=== PATIENT | female | born 1960 | race Caucasian/White ===

== ENCOUNTER → 2016-12-11 | Outpatient (REF) | payer MEDICARE, MEDICAID ==
[~2016-12-11] MED LIST: ADV250INH INH; ALBU17IN INH; ALBU83IN INH; CHEW500C2 PO; CRES20TA PO; CYCL1POW XX; DAPS10TA PO; GABA600T PO; HYDR-3713 PO; HYDROXYZINE HCL; INSUDET SC; LANTINJ4 SC; LASI20TA PO; LEVE1INJ5 SC; NORV100T PO; NOVOINJ3 SC; POTA75TA2 PO; PREZ800T2 PO; TIVI1TAB PO; TRUVTAB PO; VITA100067 PO; VITA500C24 PO
[2016-12-11 14:13] LABS: ALBUMIN 3.8 GM/DL (3.2-5.2); ALBUMIN/GLOBULIN RATIO 1.09 (1.00-1.93); ALKALINE PHOSPHATASE 86 U/L (45-117); ALT/SGPT 41 U/L (12-78); ANION GAP 10 MEQ/L (8-16); AST/SGOT 40 U/L (15-37); BILIRUBIN,TOTAL 0.8 MG/DL (0.2-1.0); BLOOD UREA NITROGEN 10 MG/DL (7-18); CALCIUM LEVEL 9.4 MG/DL (8.5-10.1); CARBON DIOXIDE LEVEL 31 MEQ/L (21-32); CHLORIDE LEVEL 100 MEQ/L (98-107); CHOLESTEROL LEVEL 143 MG/DL (<200); CREATININE FOR GFR 0.96 MG/DL (0.55-1.02); GLOMERULAR FILTRATION RATE > 60.0 (>51); GLUCOSE, FASTING 68 MG/DL (70-105); POTASSIUM SERUM 3.1 MEQ/L (3.5-5.1); SODIUM LEVEL 141 MEQ/L (136-145); TOTAL PROTEIN 7.3 GM/DL (6.4-8.2); TRIGLYCERIDES LEVEL 116 MG/DL (<150)
[2016-12-13 00:08] LABS: %CD3+CD4+CD8+ 1.2 % (Not Estab.); %CD3+CD4+CD8- 6.4 % (Not Estab.); %CD3+CD4-CD8+ 68.4 % (Not Estab.); %CD3+CD4-CD8- 0.4 % (Not Estab.); ABS CD3+CD4+CD8+ 14 /uL (Not Estab.); ABS CD3+CD4+CD8- 77 /uL (Not Estab.); ABS CD3+CD4-CD8+ 821 /uL (Not Estab.); ABS CD3+CD4-CD8- 5 /uL (Not Estab.); CD4/CD8 NYSDOH RATIO 0.09 (Not Estab.); Eosinophils 2 % (.); HCT 44.4 % (34.0-46.6); HGB 14.8 g/dL (11.1-15.9); Monocytes 12 % (.); Neutrophils 67 % (.); WBC 6.4 x10E3/uL (3.4-10.8)
[2016-12-22 08:21] LABS: Genotype Assay SEE SEPARATE REPORT; log10 HIV-1 RNA 3.489
== END ==
LOC: M LABDRAW1 11:33
PROVIDERS: ATTEND Internal Medicine Infectious Disease
DX: B20 Human immunodeficiency virus [HIV] disease (principal); E11.9 Type 2 diabetes mellitus without complications
CPT/HCPCS: 36415; 80053; 80061; 83036; 86360; G0463

== ENCOUNTER → 2017-01-29 | Outpatient (REF) | payer MEDICARE, MEDICAID ==
[2017-01-29 16:11] LABS: ALBUMIN 3.6 GM/DL (3.2-5.2); ALBUMIN/GLOBULIN RATIO 0.95 (1.00-1.93); ALKALINE PHOSPHATASE 122 U/L (45-117); ALT/SGPT 39 U/L (12-78); ANION GAP 6 MEQ/L (8-16); AST/SGOT 18 U/L (15-37); BILIRUBIN,TOTAL 0.2 MG/DL (0.2-1.0); BLOOD UREA NITROGEN 10 MG/DL (7-18); CALCIUM LEVEL 9.2 MG/DL (8.5-10.1); CARBON DIOXIDE LEVEL 31 MEQ/L (21-32); CHLORIDE LEVEL 104 MEQ/L (98-107); CREATININE FOR GFR 0.97 MG/DL (0.55-1.02); GLOMERULAR FILTRATION RATE > 60.0 (>51); GLUCOSE, FASTING 200 MG/DL (70-105); POTASSIUM SERUM 4.2 MEQ/L (3.5-5.1); SODIUM LEVEL 141 MEQ/L (136-145); TOTAL PROTEIN 7.4 GM/DL (6.4-8.2)
[2017-02-04 00:06] LABS: %CD3+CD4+CD8- 6.8 % (Not Estab.); %CD3+CD4-CD8+ 76.4 % (Not Estab.); %CD3+CD4-CD8- 0.8 % (Not Estab.); ABS CD3+CD4+CD8+ 12 /uL (Not Estab.); ABS CD3+CD4+CD8- 82 /uL (Not Estab.); ABS CD3+CD4-CD8+ 917 /uL (Not Estab.); ABS CD3+CD4-CD8- 10 /uL (Not Estab.); CD4/CD8 NYSDOH RATIO 0.09 (Not Estab.); Eosinophils 6 % (.); HCT 44.6 % (34.0-46.6); HGB 14.9 g/dL (11.1-15.9); Monocytes 11 % (.); Neutrophils 48 % (.); WBC 3.8 x10E3/uL (3.4-10.8)
== END ==
LOC: M SFHCPLAZ 13:24
PROVIDERS: ATTEND Internal Medicine Infectious Disease
DX: B20 Human immunodeficiency virus [HIV] disease (principal)
CPT/HCPCS: 36415; 80053; 86360; 87536; G0463

== ENCOUNTER → 2017-02-26 | Outpatient (REF) | payer MEDICARE, MEDICAID ==
[2017-02-26 16:51] LABS: ALBUMIN 3.7 GM/DL (3.2-5.2); ALBUMIN/GLOBULIN RATIO 0.93 (1.00-1.93); ALKALINE PHOSPHATASE 103 U/L (45-117); ALT/SGPT 21 U/L (12-78); ANION GAP 7 MEQ/L (8-16); AST/SGOT 15 U/L (15-37); BILIRUBIN,TOTAL 0.4 MG/DL (0.2-1.0); BLOOD UREA NITROGEN 11 MG/DL (7-18); CALCIUM LEVEL 9.9 MG/DL (8.5-10.1); CARBON DIOXIDE LEVEL 32 MEQ/L (21-32); CHLORIDE LEVEL 104 MEQ/L (98-107); CREATININE FOR GFR 0.91 MG/DL (0.55-1.02); GLOMERULAR FILTRATION RATE > 60.0 (>51); GLUCOSE, FASTING 108 MG/DL (70-105); POTASSIUM SERUM 4.1 MEQ/L (3.5-5.1); SODIUM LEVEL 143 MEQ/L (136-145); TOTAL PROTEIN 7.7 GM/DL (6.4-8.2)
[2017-03-03 14:12] LABS: Eosinophils 3 % (.); HCT 44.2 % (34.0-46.6); HGB 14.8 g/dL (11.1-15.9); Monocytes 12 % (.); Neutrophils 58 % (.); WBC 5.4 x10E3/uL (3.4-10.8)
== END ==
LOC: M SFHCPLAZ 14:34
PROVIDERS: ATTEND Internal Medicine Infectious Disease
DX: B20 Human immunodeficiency virus [HIV] disease (principal)
CPT/HCPCS: 80053; 86360; 87536; G0463

== ENCOUNTER → 2017-05-25 | Outpatient (REF) | payer MEDICARE, MEDICAID ==
[2017-05-25 16:42] LABS: ALBUMIN 3.6 GM/DL (3.2-5.2); ALKALINE PHOSPHATASE 109 U/L (45-117); ALT/SGPT 19 U/L (12-78); ANION GAP 5 MEQ/L (8-16); AST/SGOT 13 U/L (7-37); BILIRUBIN,TOTAL 0.3 MG/DL (0.2-1.0); BLOOD UREA NITROGEN 14 MG/DL (7-18); CALCIUM LEVEL 9.4 MG/DL (8.5-10.1); CARBON DIOXIDE LEVEL 33 MEQ/L (21-32); CHLORIDE LEVEL 101 MEQ/L (98-107); CHOLESTEROL LEVEL 280 MG/DL (<200); GLOMERULAR FILTRATION RATE > 60.0 (>51); GLUCOSE, FASTING 142 MG/DL (70-105); POTASSIUM SERUM 4.8 MEQ/L (3.5-5.1); SODIUM LEVEL 139 MEQ/L (136-145); TOTAL PROTEIN 7.6 GM/DL (6.4-8.2); TRIGLYCERIDES LEVEL 335 MG/DL (<150)
== END ==
LOC: M SFHCPLAZ 14:34
PROVIDERS: ATTEND Internal Medicine Infectious Disease
DX: B20 Human immunodeficiency virus [HIV] disease (principal); E78.00 Pure hypercholesterolemia, unspecified; E11.9 Type 2 diabetes mellitus without complications

== ENCOUNTER → 2017-08-24 | Outpatient (REF) | payer MEDICARE, MEDICAID ==
[2017-08-24 16:10] LABS: ALBUMIN 3.6 GM/DL (3.2-5.2); ALBUMIN/GLOBULIN RATIO 0.86 (1.00-1.93); ALKALINE PHOSPHATASE 153 U/L (45-117); ALT/SGPT 16 U/L (12-78); ANION GAP 9 MEQ/L (8-16); AST/SGOT 12 U/L (7-37); BILIRUBIN,TOTAL 0.3 MG/DL (0.2-1.0); BLOOD UREA NITROGEN 13 MG/DL (7-18); CALCIUM LEVEL 8.7 MG/DL (8.5-10.1); CARBON DIOXIDE LEVEL 30 MEQ/L (21-32); CHLORIDE LEVEL 99 MEQ/L (98-107); CHOLESTEROL LEVEL 224 MG/DL (<200); CHOLESTEROL RISK RATIO 4.392 (<5); CREATININE FOR GFR 1.11 MG/DL (0.55-1.30); GLOMERULAR FILTRATION RATE 53.9 (>51); GLUCOSE, FASTING 297 MG/DL (70-100); HDL CHOLESTEROL 51 MG/DL (>40); LDL CHOLESTEROL 129.4 MG/DL (<100); NON-HDL-C 173 MG/DL; POTASSIUM SERUM 4.3 MEQ/L (3.5-5.1); SODIUM LEVEL 138 MEQ/L (136-145); TOTAL PROTEIN 7.8 GM/DL (6.4-8.2); TRIGLYCERIDES LEVEL 218 MG/DL (<150)
[2017-08-24 16:29] LABS: ESTIMATED AVERAGE GLUCOSE 194 MG/DL (60-110); HEMOGLOBIN A1c 8.4 %
[2017-08-26 14:15] LABS: % CD8 Pos Lymph 64.1 % (12.0-35.5); %CD4 Pos Lymphs 10.2 % (30.8-58.5); ABS Eosinophils 0.2 x10E3/uL (0.0-0.4); ABS Lymphs 1.4 x10E3/uL (0.7-3.1); ABS Monocytes 0.5 x10E3/uL (0.1-0.9); ABS Neutophils 2.9 x10E3/uL (1.4-7.0); Abs CD4 Helper 143 /uL (359-1519); Abs CD8 Suppres 897 /uL (109-897); CD4/CD8 Ratio 0.16 (0.92-3.72); Eosinophils 4 % (Not Estab.); HCT 45.3 % (34.0-46.6); HGB 14.9 g/dL (11.1-15.9); Imm ABS Grans 0.1 x10E3/uL (0.0-0.1); Immature Grans 1 % (Not Estab.); Lymphocytes 28 % (Not Estab.); MCH 33.9 pg (26.6-33.0); MCHC 32.9 g/dL (31.5-35.7); MCV 103 fL (79-97); Monocytes 10 % (Not Estab.); Neutrophils 57 % (Not Estab.); Platelets 225 x10E3/uL (150-379); QUANTIFERON GOLD TB Negative (Negative); RDW 12.9 % (12.3-15.4); TB Test (QFT) Antigen 0.04 IU/mL (.); TB Test (QFT) Antigen Minus Ni <0.01 IU/mL (.); TB Test (QFT) Mitogen 7.02 IU/mL (.); TB Test (QFT) Nil 0.05 IU/mL (.)
[2017-08-27 14:13] LABS: HIV-1 RNA PCR QUANT 2 LC550285 90 copies/mL (.); HIV-1 RNA PCR QUANT 3 LC550285 1.954 (.)
== END ==
LOC: M SFHCPLAZ 13:06
DX: B20 Human immunodeficiency virus [HIV] disease (principal); E11.9 Type 2 diabetes mellitus without complications; E78.00 Pure hypercholesterolemia, unspecified; Z11.3 Encounter for screening for infections with a predominantly sexual mode of transmission; F51.01 Primary insomnia; B58.2 Toxoplasma meningoencephalitis; F32.9 Major depressive disorder, single episode, unspecified; Z79.4 Long term (current) use of insulin
CPT/HCPCS: 80053

== ENCOUNTER → 2017-10-02 | Outpatient (CLI) | payer MEDICARE, MEDICAID | LOC: M WHC 14:19 | DX: Z12.31 Encounter for screening mammogram for malignant neoplasm of breast (principal); Z13.820 Encounter for screening for osteoporosis; Z78.0 Asymptomatic menopausal state | CPT/HCPCS: 77067 ==

== ENCOUNTER → 2017-10-02 | Outpatient (REF) | payer MEDICARE, MEDICAID ==
[2017-10-02 19:20] LABS: CHLAMYDIA DNA AMPLIFICATION NEGATIVE (NEGATIVE); GC DNA AMPLIFICATION NEGATIVE (NEGATIVE)
== END ==
LOC: M SFHCWAGY 17:30
DX: Z11.3 Encounter for screening for infections with a predominantly sexual mode of transmission (principal); Z12.4 Encounter for screening for malignant neoplasm of cervix; R87.610 Atypical squamous cells of undetermined significance on cytologic smear of cervix (ASC-US)
CPT/HCPCS: 87591

== ENCOUNTER → 2017-10-02 | Outpatient (REF) | payer MEDICARE, MEDICAID | LOC: M SFHCWAGY 14:36 | DX: Z12.4 Encounter for screening for malignant neoplasm of cervix (principal); Z11.3 Encounter for screening for infections with a predominantly sexual mode of transmission; R87.610 Atypical squamous cells of undetermined significance on cytologic smear of cervix (ASC-US) | CPT/HCPCS: G0123 ==

== ENCOUNTER → 2018-01-26 | Outpatient (REF) | payer MEDICARE, MEDICAID ==
[2018-01-26 17:25] LABS: ESTIMATED AVERAGE GLUCOSE 212 MG/DL (60-110)
[2018-01-26 18:41] LABS: ALBUMIN 3.3 GM/DL (3.2-5.2); ALBUMIN/GLOBULIN RATIO 0.83 (1.00-1.93); ALKALINE PHOSPHATASE 112 U/L (45-117); ALT/SGPT 19 U/L (12-78); ANION GAP 6 MEQ/L (8-16); AST/SGOT 11 U/L (7-37); BILIRUBIN,TOTAL 0.3 MG/DL (0.2-1.0); BLOOD UREA NITROGEN 17 MG/DL (7-18); CALCIUM LEVEL 8.7 MG/DL (8.5-10.1); CARBON DIOXIDE LEVEL 31 MEQ/L (21-32); CHLORIDE LEVEL 104 MEQ/L (98-107); CHOLESTEROL LEVEL 283 MG/DL (<200); CHOLESTEROL RISK RATIO 4.639 (<5); CREATININE FOR GFR 1.14 MG/DL (0.55-1.30); GLOMERULAR FILTRATION RATE 52.3 (>51); GLUCOSE, FASTING 123 MG/DL (70-100); HDL CHOLESTEROL 61 MG/DL (>40); NON-HDL-C 222 MG/DL; POTASSIUM SERUM 4.1 MEQ/L (3.5-5.1); SODIUM LEVEL 141 MEQ/L (136-145); TOTAL PROTEIN 7.3 GM/DL (6.4-8.2); TRIGLYCERIDES LEVEL 200 MG/DL (<150)
[2018-01-30 00:06] LABS: % CD8 Pos Lymph 64.2 % (12.0-35.5); %CD4 Pos Lymphs 11.2 % (30.8-58.5); ABS Eosinophils 0.2 x10E3/uL (0.0-0.4); ABS Lymphs 1.5 x10E3/uL (0.7-3.1); ABS Monocytes 0.5 x10E3/uL (0.1-0.9); ABS Neutophils 4.2 x10E3/uL (1.4-7.0); Abs CD4 Helper 168 /uL (359-1519); Abs CD8 Suppres 963 /uL (109-897); CD4/CD8 Ratio 0.17 (0.92-3.72); Eosinophils 3 % (Not Estab.); HCT 43.4 % (34.0-46.6); HGB 14.4 g/dL (11.1-15.9); HIV-1 RNA PCR QUANT 2 LC550285 80 copies/mL (.); HIV-1 RNA PCR QUANT 3 LC550285 1.903 (.); Immature Grans 1 % (Not Estab.); Lymphocytes 23 % (Not Estab.); MCH 33.6 pg (26.6-33.0); MCHC 33.2 g/dL (31.5-35.7); MCV 101 fL (79-97); Monocytes 8 % (Not Estab.); Neutrophils 65 % (Not Estab.); Platelets 236 x10E3/uL (150-379); RBC 4.28 x10E6/uL (3.77-5.28); RDW 13.4 % (12.3-15.4); WBC 6.5 x10E3/uL (3.4-10.8)
== END ==
LOC: M SFHCPLAZ 12:09
DX: B20 Human immunodeficiency virus [HIV] disease (principal); E11.9 Type 2 diabetes mellitus without complications; E78.00 Pure hypercholesterolemia, unspecified
CPT/HCPCS: 84443

== ENCOUNTER → 2018-05-04 | Outpatient (REF) | payer MEDICARE, MEDICAID ==
[2018-05-04 14:04] LABS: ESTIMATED AVERAGE GLUCOSE 209 MG/DL (60-110); HEMOGLOBIN A1c 8.9 %
[2018-05-04 14:09] LABS: ALBUMIN 3.5 GM/DL (3.2-5.2); ALBUMIN/GLOBULIN RATIO 0.81 (1.00-1.93); ALKALINE PHOSPHATASE 127 U/L (45-117); ALT/SGPT 25 U/L (12-78); ANION GAP 4 MEQ/L (8-16); AST/SGOT 12 U/L (7-37); BILIRUBIN,TOTAL 0.5 MG/DL (0.2-1.0); BLOOD UREA NITROGEN 11 MG/DL (7-18); CALCIUM LEVEL 9.1 MG/DL (8.5-10.1); CARBON DIOXIDE LEVEL 34 MEQ/L (21-32); CHLORIDE LEVEL 101 MEQ/L (98-107); CHOLESTEROL LEVEL 399 MG/DL (<200); CHOLESTEROL RISK RATIO 6.762 (<5); CREATININE FOR GFR 1.02 MG/DL (0.55-1.30); GLOMERULAR FILTRATION RATE 59.3 (>51); GLUCOSE, FASTING 216 MG/DL (70-100); HDL CHOLESTEROL 59 MG/DL (>40); LDL CHOLESTEROL 293 MG/DL (<100); NON-HDL-C 340 MG/DL; POTASSIUM SERUM 4.3 MEQ/L (3.5-5.1); SODIUM LEVEL 139 MEQ/L (136-145); TOTAL PROTEIN 7.8 GM/DL (6.4-8.2); TRIGLYCERIDES LEVEL 234 MG/DL (<150)
[2018-05-07 00:06] LABS: % CD8 Pos Lymph 61.1 % (12.0-35.5); %CD4 Pos Lymphs 9.5 % (30.8-58.5); ABS Eosinophils 0.2 x10E3/uL (0.0-0.4); ABS Lymphs 1.5 x10E3/uL (0.7-3.1); ABS Monocytes 0.7 x10E3/uL (0.1-0.9); ABS Neutophils 4.6 x10E3/uL (1.4-7.0); Abs CD4 Helper 143 /uL (359-1519); Abs CD8 Suppres 917 /uL (109-897); CD4/CD8 Ratio 0.16 (0.92-3.72); Eosinophils 3 % (Not Estab.); HCT 43.3 % (34.0-46.6); HGB 15.2 g/dL (11.1-15.9); HIV-1 RNA PCR QUANT 2 LC550285 90 copies/mL (.); HIV-1 RNA PCR QUANT 3 LC550285 1.954 (.); Imm ABS Grans 0.1 x10E3/uL (0.0-0.1); Immature Grans 1 % (Not Estab.); Lymphocytes 21 % (Not Estab.); MCH 34.5 pg (26.6-33.0); MCHC 35.1 g/dL (31.5-35.7); MCV 98 fL (79-97); Monocytes 9 % (Not Estab.); Neutrophils 66 % (Not Estab.); Platelets 261 x10E3/uL (150-379); RDW 13.6 % (12.3-15.4)
== END ==
LOC: M SFHCPLAZ 11:27
DX: B20 Human immunodeficiency virus [HIV] disease (principal); E11.9 Type 2 diabetes mellitus without complications; E78.00 Pure hypercholesterolemia, unspecified; Z23 Encounter for immunization
CPT/HCPCS: 80053

== ENCOUNTER → 2018-08-05 | Outpatient (REF) | payer MEDICARE, MEDICAID ==
[~2018-08-05] MED LIST changes: -GABA600T PO; +GABA600T4 PO; -LASI20TA PO; +LASI20TA3 PO
[2018-08-05 13:56] LABS: HEMOGLOBIN A1c 10.2 %
[2018-08-05 14:01] LABS: ALBUMIN 3.8 GM/DL (3.2-5.2); ALT/SGPT 23 U/L (12-78); BILIRUBIN,TOTAL 0.4 MG/DL (0.2-1.0); BLOOD UREA NITROGEN 23 MG/DL (7-18); CALCIUM LEVEL 9.2 MG/DL (8.5-10.1); CARBON DIOXIDE LEVEL 31 MEQ/L (21-32); CHLORIDE LEVEL 98 MEQ/L (98-107); CHOLESTEROL LEVEL 382 MG/DL (<200); CHOLESTEROL RISK RATIO 5.968 (<5); GLOMERULAR FILTRATION RATE > 60.0 (>51); GLUCOSE, FASTING 254 MG/DL (70-100); HDL CHOLESTEROL 64 MG/DL (>40); LDL CHOLESTEROL 266 MG/DL (<100); NON-HDL-C 318 MG/DL; POTASSIUM SERUM 4.3 MEQ/L (3.5-5.1); SODIUM LEVEL 135 MEQ/L (136-145); TOTAL PROTEIN 7.9 GM/DL (6.4-8.2); TRIGLYCERIDES LEVEL 261 MG/DL (<150)
[2018-08-10 00:06] LABS: % CD8 Pos Lymph 59.5 % (12.0-35.5); %CD4 Pos Lymphs 10.3 % (30.8-58.5); ABS Eosinophils 0.2 x10E3/uL (0.0-0.4); ABS Lymphs 1.7 x10E3/uL (0.7-3.1); ABS Monocytes 0.6 x10E3/uL (0.1-0.9); ABS Neutophils 4.5 x10E3/uL (1.4-7.0); Abs CD4 Helper 175 /uL (359-1519); Abs CD8 Suppres 1012 /uL (109-897); CD4/CD8 Ratio 0.17 (0.92-3.72); Eosinophils 3 % (Not Estab.); HCT 47.1 % (34.0-46.6); HGB 16.4 g/dL (11.1-15.9); HIV-1 RNA PCR QUANT 2 LC550285 100 copies/mL (.); Imm ABS Grans 0.1 x10E3/uL (0.0-0.1); Immature Grans 1 % (Not Estab.); Lymphocytes 24 % (Not Estab.); MCH 34.5 pg (26.6-33.0); MCHC 34.8 g/dL (31.5-35.7); MCV 99 fL (79-97); Monocytes 8 % (Not Estab.); Neutrophils 64 % (Not Estab.); Platelets 248 x10E3/uL (150-379); RBC 4.76 x10E6/uL (3.77-5.28); RDW 12.9 % (12.3-15.4)
== END ==
LOC: M SFHCPLAZ 12:07
PROVIDERS: ATTEND Internal Medicine Infectious Disease
DX: B20 Human immunodeficiency virus [HIV] disease (principal); E11.40 Type 2 diabetes mellitus with diabetic neuropathy, unspecified
CPT/HCPCS: 36415; 80053; 80061; 83036; 86360; 86480; 87536; G0463

== ENCOUNTER → 2018-08-16 | Outpatient (CLI) | payer MEDICARE, MEDICAID ==
[~2018-08-16] MED LIST changes: +PROHANCE 279.3MG/ML 15ML VIAL (A9576) As Ordered ONE; +PROHANCE 279.3MG/ML 5ML VIAL (A9576) As Ordered ONE
--- NOTE | 2018-08-16 17:25 | REP ---
MR BRAIN WITHOUT AND WITH CONTRAST: HISTORY: Toxoplasmosis. CONTRAST: ProHance 17 mL. A 5 mm rim enhancing lesion is present in the left thalamus. There is no surrounding edema or mass effect. A 3 mm focus of enhancement is present in the right parietal lobe. This may represent a second ring enhancing lesion versus normal blood vessel. A small area of increased signal intensity on T2 weighted images is present in the right parietal lobe. This represents gliosis. Scattered areas of increased signal intensity are present in the periventricular and subcortical white matter. This represents small vessel ischemic disease. There is no intraparenchymal hemorrhage, infarct, or midline shift. The ventricular system and cortical sulci are dilated consistent with mild volume loss. There is no extracerebral collection. Mucosal thickening is present in the left maxillary sinus. IMPRESSION: 1. There is a 5 mm ring enhancing lesion in the left thalamus consistent with toxoplasmosis. There is a possible second 3 mm lesion in the right parietal lobe versus blood vessel. 2. Right parietal lobe gliosis. 3. Small vessel ischemic disease. 4. Mild volume loss. Electronically Signed by Mitch Zhang MD 08/16/2018 05:27 P
== END ==
LOC: M RAD 15:08
PROVIDERS: ATTEND Internal Medicine Infectious Disease
DX: B20 Human immunodeficiency virus [HIV] disease (principal); B58.2 Toxoplasma meningoencephalitis
CPT/HCPCS: 70553; A9576

== ENCOUNTER → 2018-10-25 | Outpatient (REF) | payer MEDICARE, MEDICAID ==
[~2018-10-25] MED LIST changes: -CRES20TA PO; +CRES20TA2 PO; -PROHANCE 279.3MG/ML 15ML VIAL (A9576) As Ordered ONE; -PROHANCE 279.3MG/ML 5ML VIAL (A9576) As Ordered ONE
[2018-10-25 17:07] LABS: HEMOGLOBIN A1c 10.9 %
[2018-10-25 18:20] LABS: ALBUMIN 3.2 GM/DL (3.2-5.2); ALT/SGPT 30 U/L (12-78); BILIRUBIN,TOTAL 0.5 MG/DL (0.2-1.0); BLOOD UREA NITROGEN 11 MG/DL (7-18); CALCIUM LEVEL 8.6 MG/DL (8.5-10.1); CARBON DIOXIDE LEVEL 30 MEQ/L (21-32); CHLORIDE LEVEL 104 MEQ/L (98-107); CREATININE FOR GFR 0.95 MG/DL (0.55-1.30); GLOMERULAR FILTRATION RATE > 60.0 (>51); GLUCOSE, FASTING 158 MG/DL (70-100); POTASSIUM SERUM 3.8 MEQ/L (3.5-5.1); SODIUM LEVEL 141 MEQ/L (136-145); TOTAL PROTEIN 7.3 GM/DL (6.4-8.2)
[2018-10-28 00:07] LABS: % CD8 Pos Lymph 63.1 % (12.0-35.5); %CD4 Pos Lymphs 13.3 % (30.8-58.5); ABS Eosinophils 0.1 x10E3/uL (0.0-0.4); ABS Lymphs 1.3 x10E3/uL (0.7-3.1); ABS Monocytes 0.3 x10E3/uL (0.1-0.9); ABS Neutophils 2.8 x10E3/uL (1.4-7.0); Abs CD4 Helper 173 /uL (359-1519); Abs CD8 Suppres 820 /uL (109-897); CD4/CD8 Ratio 0.21 (0.92-3.72); Eosinophils 3 % (Not Estab.); HCT 45.3 % (34.0-46.6); HGB 15.2 g/dL (11.1-15.9); HIV-1 RNA PCR QUANT 2 LC550285 9670 copies/mL (.); HIV-1 RNA PCR QUANT 3 LC550285 3.985 (.); Immature Grans 1 % (Not Estab.); Lymphocytes 28 % (Not Estab.); MCH 33.9 pg (26.6-33.0); MCHC 33.6 g/dL (31.5-35.7); MCV 101 fL (79-97); Monocytes 7 % (Not Estab.); Neutrophils 61 % (Not Estab.); Platelets 168 x10E3/uL (150-450); RBC 4.48 x10E6/uL (3.77-5.28); WBC 4.5 x10E3/uL (3.4-10.8)
== END ==
LOC: M SFHCPLAZ 10:14
PROVIDERS: ATTEND Internal Medicine Infectious Disease
DX: B20 Human immunodeficiency virus [HIV] disease (principal); E11.40 Type 2 diabetes mellitus with diabetic neuropathy, unspecified
CPT/HCPCS: 36415; 80053; 83036; 86360; 87536; G0463

== ENCOUNTER → 2018-12-16 | Outpatient (REF) | payer MEDICARE, MEDICAID ==
[2018-12-16 16:22] LABS: FREE T4 0.84 NG/DL (0.76-1.46); THYROID STIMULATING HORMONE 2.78 uIU/ML (0.358-3.740)
[2018-12-21 00:06] LABS: % CD8 Pos Lymph 65.3 % (12.0-35.5); %CD4 Pos Lymphs 11.9 % (30.8-58.5); ABS Eosinophils 0.4 x10E3/uL (0.0-0.4); ABS Lymphs 1.3 x10E3/uL (0.7-3.1); ABS Monocytes 0.5 x10E3/uL (0.1-0.9); ABS Neutophils 3.4 x10E3/uL (1.4-7.0); Abs CD4 Helper 155 /uL (359-1519); Abs CD8 Suppres 849 /uL (109-897); CD4/CD8 Ratio 0.18 (0.92-3.72); Eosinophils 7 % (Not Estab.); HCT 45.6 % (34.0-46.6); HGB 15.3 g/dL (11.1-15.9); HIV-1 RNA PCR QUANT 2 LC550285 6760 copies/mL (.); Immature Grans 1 % (Not Estab.); Lymphocytes 23 % (Not Estab.); MCH 33.2 pg (26.6-33.0); MCHC 33.6 g/dL (31.5-35.7); MCV 99 fL (79-97); Monocytes 9 % (Not Estab.); Neutrophils 60 % (Not Estab.); Platelets 262 x10E3/uL (150-450); RBC 4.61 x10E6/uL (3.77-5.28); RDW 12.9 % (12.3-15.4); WBC 5.6 x10E3/uL (3.4-10.8)
[2018-12-30 08:23] LABS: HIV GenoSure PRIme(R) SEE SEPARATE REPORT
== END ==
LOC: M SFHCPLAZ 13:50
PROVIDERS: ATTEND Internal Medicine Infectious Disease
DX: B20 Human immunodeficiency virus [HIV] disease (principal); E03.9 Hypothyroidism, unspecified
CPT/HCPCS: 36415; 84439; 84443; 86360; 87536; G0463

== ENCOUNTER → 2019-03-22 | Outpatient (REF) | payer MEDICARE, MEDICAID ==
[2019-03-22 17:59] LABS: ALBUMIN 3.3 GM/DL (3.2-5.2); ALT/SGPT 24 U/L (12-78); BILIRUBIN,TOTAL 0.5 MG/DL (0.2-1.0); BLOOD UREA NITROGEN 9 MG/DL (7-18); CALCIUM LEVEL 9.2 MG/DL (8.5-10.1); CARBON DIOXIDE LEVEL 29 MEQ/L (21-32); CHLORIDE LEVEL 100 MEQ/L (98-107); CREATININE FOR GFR 0.93 MG/DL (0.55-1.30); GLOMERULAR FILTRATION RATE > 60.0 (>51); GLUCOSE, FASTING 424 MG/DL (70-100); SODIUM LEVEL 135 MEQ/L (136-145); TOTAL PROTEIN 7.5 GM/DL (6.4-8.2)
[2019-03-26 00:07] LABS: % CD8 Pos Lymph 64.5 % (12.0-35.5); %CD4 Pos Lymphs 9.5 % (30.8-58.5); ABS Eosinophils 0.2 x10E3/uL (0.0-0.4); ABS Lymphs 1.5 x10E3/uL (0.7-3.1); ABS Monocytes 0.5 x10E3/uL (0.1-0.9); ABS Neutophils 4.3 x10E3/uL (1.4-7.0); Abs CD4 Helper 143 /uL (359-1519); Abs CD8 Suppres 968 /uL (109-897); CD4/CD8 Ratio 0.15 (0.92-3.72); Eosinophils 3 % (Not Estab.); HCT 45.1 % (34.0-46.6); HGB 14.6 g/dL (11.1-15.9); HIV-1 RNA PCR QUANT 2 LC550285 770 copies/mL (.); HIV-1 RNA PCR QUANT 3 LC550285 2.886 (.); Immature Grans 0 % (Not Estab.); Lymphocytes 23 % (Not Estab.); MCH 32.7 pg (26.6-33.0); MCHC 32.4 g/dL (31.5-35.7); MCV 101 fL (79-97); Monocytes 8 % (Not Estab.); Neutrophils 65 % (Not Estab.); Platelets 297 x10E3/uL (150-450); RBC 4.47 x10E6/uL (3.77-5.28); RDW 13.3 % (12.3-15.4); WBC 6.6 x10E3/uL (3.4-10.8)
== END ==
LOC: M SFHCPLAZ 14:40
PROVIDERS: ATTEND Internal Medicine Infectious Disease
DX: B20 Human immunodeficiency virus [HIV] disease (principal); Z23 Encounter for immunization
CPT/HCPCS: 36415; 80053; 86360; 87536; 90682; G0008; G0463

== ENCOUNTER → 2019-07-05 | Outpatient (REF) | payer MEDICARE, MEDICAID ==
[2019-07-05 17:48] LABS: APPEARANCE, URINE MANUAL HAZY (CLEAR); COLOR, URINE MANUAL YELLOW (YELLOW); GLUCOSE, URINE (UA) MANUAL 4+(1000 MG/DL) mg/dL (NEGATIVE); PROTEIN, URINE MANUAL TRACE mg/dL (NEGATIVE); SPECIFIC GRAVITY,URINE MANUAL 1.015 (1.002-1.035)
[2019-07-05 17:49] LABS: BILIRUBIN, URINE MANUAL NEGATIVE (NEGATIVE); BLOOD URINE MANUAL POSITIVE (NEGATIVE); KETONE, URINE MANUAL NEGATIVE (NEGATIVE); LEUKOCYTE ESTERASE, URINE MAN POSITIVE (NEGATIVE); NITRITE, URINE MANUAL NEGATIVE (NEGATIVE); UROBILINOGEN, URINE MANUAL NORMAL (NORMAL)
[2019-07-05 17:50] LABS: RBC, URINE NONE SEEN /hpf (0-3); SQUAMOUS EPITHELIAL CELL URINE NONE SEEN /hpf (SMALL AMT)
[2019-07-05 17:51] LABS: BACTERIA, URINE LARGE AMOUNT; HYALINE CAST, URINE NONE SEEN /lpf (0-1)
[2019-07-05 20:25] LABS: ALBUMIN 3.5 GM/DL (3.2-5.2); BILIRUBIN,TOTAL 0.6 MG/DL (0.2-1.0); CALCIUM LEVEL 9.5 MG/DL (8.5-10.1); CHOLESTEROL RISK RATIO 6.519 (<5); CREATININE FOR GFR 1.09 MG/DL (0.55-1.30); GLOMERULAR FILTRATION RATE 54.7 (>51); POTASSIUM SERUM 4.7 MEQ/L (3.5-5.1)
[2019-07-09 00:06] LABS: % CD8 Pos Lymph 68.5 % (12.0-35.5); %CD4 Pos Lymphs 10.2 % (30.8-58.5); ABS Eosinophils 0.1 x10E3/uL (0.0-0.4); ABS Lymphs 1.3 x10E3/uL (0.7-3.1); ABS Monocytes 0.5 x10E3/uL (0.1-0.9); ABS Neutophils 4.7 x10E3/uL (1.4-7.0); Abs CD4 Helper 133 /uL (359-1519); Abs CD8 Suppres 891 /uL (109-897); CD4/CD8 Ratio 0.15 (0.92-3.72); Eosinophils 2 % (Not Estab.); HCT 45.1 % (34.0-46.6); HGB 14.8 g/dL (11.1-15.9); HIV-1 RNA PCR QUANT 2 LC550285 280 copies/mL (.); HIV-1 RNA PCR QUANT 3 LC550285 2.447 (.); Immature Grans 0 % (Not Estab.); Lymphocytes 20 % (Not Estab.); MCH 32.7 pg (26.6-33.0); MCHC 32.8 g/dL (31.5-35.7); MCV 100 fL (79-97); Monocytes 7 % (Not Estab.); Neutrophils 71 % (Not Estab.); Platelets 291 x10E3/uL (150-450); RBC 4.52 x10E6/uL (3.77-5.28); RDW 13.4 % (11.7-15.4); WBC 6.6 x10E3/uL (3.4-10.8)
== END ==
LOC: M SFHCPLAZ 13:06
PROVIDERS: ATTEND Internal Medicine Infectious Disease
DX: B20 Human immunodeficiency virus [HIV] disease (principal); E78.00 Pure hypercholesterolemia, unspecified; K62.89 Other specified diseases of anus and rectum
CPT/HCPCS: 36415; 80053; 80061; 81000; 82378; 86360; 86480; 87536; G0463

== ENCOUNTER → 2020-04-02 | Outpatient (REF) | payer MEDICARE, MEDICAID ==
[2020-04-02 14:17] LABS: ALT/SGPT 11 U/L (12-78); BILIRUBIN,TOTAL 0.3 MG/DL (0.2-1.0); BLOOD UREA NITROGEN 15 MG/DL (7-18); CALCIUM LEVEL 8.8 MG/DL (8.5-10.1); CARBON DIOXIDE LEVEL 29 MEQ/L (21-32); CHLORIDE LEVEL 103 MEQ/L (98-107); CREATININE FOR GFR 0.94 MG/DL (0.55-1.30); GLOMERULAR FILTRATION RATE > 60.0 (>51); GLUCOSE, FASTING 361 MG/DL (70-100); POTASSIUM SERUM 4.6 MEQ/L (3.5-5.1); SODIUM LEVEL 138 MEQ/L (136-145); TOTAL PROTEIN 6.6 GM/DL (6.4-8.2)
[2020-04-04 03:08] LABS: % CD8 Pos Lymph 63.2 % (12.0-35.5); ABS Eosinophils 0.2 x10E3/uL (0.0-0.4); ABS Lymphs 0.5 x10E3/uL (0.7-3.1); ABS Monocytes 0.3 x10E3/uL (0.1-0.9); ABS Neutophils 2.3 x10E3/uL (1.4-7.0); Abs CD4 Helper 40 /uL (359-1519); Abs CD8 Suppres 316 /uL (109-897); CD4/CD8 Ratio 0.13 (0.92-3.72); Eosinophils 7 % (Not Estab.); HGB 12.5 g/dL (11.1-15.9); HIV-1 RNA PCR QUANT 2 LC550285 <20 copies/mL (.); Immature Grans 1 % (Not Estab.); Lymphocytes 14 % (Not Estab.); MCH 34.1 pg (26.6-33.0); MCHC 33.8 g/dL (31.5-35.7); MCV 101 fL (79-97); Monocytes 10 % (Not Estab.); Neutrophils 67 % (Not Estab.); Platelets 199 x10E3/uL (150-450); RBC 3.67 x10E6/uL (3.77-5.28); RDW 11.7 % (11.7-15.4); WBC 3.4 x10E3/uL (3.4-10.8)
== END ==
LOC: M SFHCPLAZ 12:20
PROVIDERS: ATTEND Internal Medicine Infectious Disease
DX: B20 Human immunodeficiency virus [HIV] disease (principal); E11.40 Type 2 diabetes mellitus with diabetic neuropathy, unspecified; Z23 Encounter for immunization
CPT/HCPCS: 36415; 80053; 83036; 86360; 87536; 90682; G0008; G0463

== ENCOUNTER → 2020-07-10 | Outpatient (CLI) | payer MEDICARE, MEDICAID ==
[~2020-07-10] MED LIST changes: +CALC-362 PO; -CHEW500C2 PO
--- NOTE | 2020-07-10 13:35 | REPMRS ---
Patient History The patient states she had a clinical breast exam in 06/2020 Patient is postmenopausal, has history of other cancer at age 60, and had previous chemotherapy at age 60. Family history of breast cancer at age 50 or over in paternal aunt, breast cancer at age 50 or over in paternal aunt. Digital Woman Screen Mammo: July 10, 2020 - Exam #: [id number] Bilateral CC and MLO view(s) were taken. Technologist: Rosemary Tipton, Technologist Prior study comparison: October 02, 2017, digital woman screen mammo performed at [facility]. January 26, 2015, digital woman screen mammo performed at [facility]. FINDINGS: There are scattered fibroglandular densities. The Volpara volumetric breast density category is:B. An [id number]-P-[id number] residue or is seen projecting over the right axilla on the MLO view. There has been no change in the appearance of the mammogram from the prior studies. There is a mild amount of scattered fibroglandular density which is fairly symmetric. There is no interval development of dominant mass, architectural distortion, or grouped microcalcification suggestive of malignancy. 3-D tomosynthesis shows no additional findings. Assessment: BI-RADS/ACR category 2 mammogram. Benign Findings. Recommendation Routine screening mammogram of both breasts in 1 year (for women over age 40). This patient's [facility] Lifetime Breast Cancer Risk is estimated at 5.8 %. This mammogram was interpreted with the aid of an FDA-approved computer-aided dectection system. Electronically Signed By: Froilan Feliz MD 07/10/20 [id number]
== END ==
LOC: M WHC 12:20
PROVIDERS: ATTEND Nurse Practitioner Family
DX: Z12.31 Encounter for screening mammogram for malignant neoplasm of breast (principal); Z78.0 Asymptomatic menopausal state; Z85.89 Personal history of malignant neoplasm of other organs and systems; Z92.21 Personal history of antineoplastic chemotherapy; B20 Human immunodeficiency virus [HIV] disease

== ENCOUNTER → 2020-07-10 | Outpatient (REF) | payer MEDICARE, MEDICAID ==
[2020-07-10 14:35] LABS: ALBUMIN 3.4 GM/DL (3.2-5.2); ALT/SGPT 30 U/L (12-78); BILIRUBIN,TOTAL 0.4 MG/DL (0.2-1.0); BLOOD UREA NITROGEN 20 MG/DL (7-18); CALCIUM LEVEL 9.7 MG/DL (8.8-10.2); CARBON DIOXIDE LEVEL 33 MEQ/L (21-32); CHLORIDE LEVEL 104 MEQ/L (98-107); CREATININE FOR GFR 0.87 MG/DL (0.55-1.30); GLOMERULAR FILTRATION RATE > 60.0 (>45); GLUCOSE, FASTING 250 MG/DL (70-100); POTASSIUM SERUM 4.7 MEQ/L (3.5-5.1); SODIUM LEVEL 139 MEQ/L (136-145); TOTAL PROTEIN 7.3 GM/DL (6.4-8.2)
== END ==
LOC: M SFHCPLAZ 11:48
PROVIDERS: ATTEND Internal Medicine Infectious Disease
DX: B20 Human immunodeficiency virus [HIV] disease (principal)

== ENCOUNTER → 2020-10-23 | Outpatient (REF) | payer MEDICARE, MEDICAID ==
[~2020-10-23] MED LIST changes: +EMTR1TAB16 PO; -TRUVTAB PO
[2020-10-23 15:27] LABS: HEMOGLOBIN A1c 11.8 %
[2020-10-23 16:00] LABS: ALBUMIN 3.1 GM/DL (3.2-5.2); BILIRUBIN,TOTAL 0.3 MG/DL (0.2-1.0); CALCIUM LEVEL 8.8 MG/DL (8.8-10.2); CHOLESTEROL RISK RATIO 4.837 (<5); CREATININE FOR GFR 1.09 MG/DL (0.55-1.30); GLOMERULAR FILTRATION RATE 54.5 (>45); POTASSIUM SERUM 4.6 MEQ/L (3.5-5.1); TOTAL PROTEIN 6.7 GM/DL (6.4-8.2)
[2020-10-26 01:11] LABS: % CD8 Pos Lymph 75.5 % (12.0-35.5); %CD4 Pos Lymphs 6.9 % (30.8-58.5); ABS Eosinophils 0.1 x10E3/uL (0.0-0.4); ABS Lymphs 0.9 x10E3/uL (0.7-3.1); ABS Monocytes 0.2 x10E3/uL (0.1-0.9); ABS Neutophils 1.7 x10E3/uL (1.4-7.0); Abs CD4 Helper 62 /uL (359-1519); Abs CD8 Suppres 680 /uL (109-897); CD4/CD8 Ratio 0.09 (0.92-3.72); Eosinophils 4 % (Not Estab.); HCT 39.5 % (34.0-46.6); HIV-1 RNA PCR QUANT 2 LC550285 13300 copies/mL (.); HIV-1 RNA PCR QUANT 3 LC550285 4.124 (.); Immature Grans 0 % (Not Estab.); Lymphocytes 30 % (Not Estab.); MCH 33.6 pg (26.6-33.0); MCHC 32.9 g/dL (31.5-35.7); MCV 102 fL (79-97); Monocytes 8 % (Not Estab.); Neutrophils 57 % (Not Estab.); Platelets 185 x10E3/uL (150-450); RBC 3.87 x10E6/uL (3.77-5.28); RDW 11.9 % (11.7-15.4)
== END ==
LOC: M SFHCPLAZ 14:04
PROVIDERS: ATTEND Internal Medicine Infectious Disease
DX: B20 Human immunodeficiency virus [HIV] disease (principal); E11.40 Type 2 diabetes mellitus with diabetic neuropathy, unspecified
CPT/HCPCS: 36415; 80053; 80061; 83036; 86360; 87536; G0463

== ENCOUNTER → 2021-02-19 | Outpatient (CLI) | payer MEDICARE, MEDICAID ==
[2021-02-19 15:54] LABS: ALBUMIN 2.8 GM/DL (3.2-5.2); ALT/SGPT 17 U/L (12-78); BILIRUBIN,TOTAL 0.5 MG/DL (0.2-1.0); BLOOD UREA NITROGEN 13 MG/DL (7-18); CALCIUM LEVEL 8.9 MG/DL (8.8-10.2); CARBON DIOXIDE LEVEL 32 MEQ/L (21-32); CHLORIDE LEVEL 104 MEQ/L (98-107); CHOLESTEROL LEVEL 265 MG/DL (<200); CHOLESTEROL RISK RATIO 5.096 (<5); FREE T4 0.81 NG/DL (0.76-1.46); GLOMERULAR FILTRATION RATE > 60.0 (>45); GLUCOSE, FASTING 316 MG/DL (70-100); HDL CHOLESTEROL 52 MG/DL (>40); LDL CHOLESTEROL 170 MG/DL (<100); NON-HDL-C 213 MG/DL; POTASSIUM SERUM 4.5 MEQ/L (3.5-5.1); SODIUM LEVEL 139 MEQ/L (136-145); TOTAL PROTEIN 6.7 GM/DL (6.4-8.2); TRIGLYCERIDES LEVEL 215 MG/DL (<150)
[2021-02-19 16:41] LABS: HEMOGLOBIN A1c 12.4 %
--- NOTE | 2021-02-19 16:41 | REP ---
INDICATION: TYPE 2 DIABETES MELLITUS WITH DIABETIC NEUROPATHY, UNSP. COMPARISON: Chest 11/28/2010. TECHNIQUE: Four views left ribs, frontal view chest. FINDINGS: There is an old healed fracture of the anterior left 4th rib. There is an acute nondisplaced fracture at the anterior end of the left 8th rib. No infiltrate is seen in either lung. There is no pneumothorax or pleural effusion. The heart is not enlarged. A right central venous catheter is seen with tip in the superior vena cava. IMPRESSION: Nondisplaced acute fracture anterior left 8th rib. <Electronically signed by Ganesh Cassidy > 02/19/21 [id number]
[2021-02-23 17:07] LABS: % CD8 Pos Lymph 72.3 % (12.0-35.5); %CD4 Pos Lymphs 10.8 % (30.8-58.5); ABS Eosinophils 0.2 x10E3/uL (0.0-0.4); ABS Lymphs 0.6 x10E3/uL (0.7-3.1); ABS Monocytes 0.2 x10E3/uL (0.1-0.9); ABS Neutophils 1.2 x10E3/uL (1.4-7.0); Abs CD4 Helper 65 /uL (359-1519); Abs CD8 Suppres 434 /uL (109-897); CD4/CD8 Ratio 0.15 (0.92-3.72); Eosinophils 7 % (Not Estab.); HCT 39.8 % (34.0-46.6); HGB 12.8 g/dL (11.1-15.9); HIV-1 RNA PCR QUANT 2 LC550285 9900 copies/mL (.); HIV-1 RNA PCR QUANT 3 LC550285 3.996 (.); Immature Grans 1 % (Not Estab.); Lymphocytes 26 % (Not Estab.); MCHC 32.2 g/dL (31.5-35.7); MCV 103 fL (79-97); Monocytes 11 % (Not Estab.); Neutrophils 54 % (Not Estab.); Platelets 220 x10E3/uL (150-450); RBC 3.88 x10E6/uL (3.77-5.28); RDW 12.3 % (11.7-15.4); WBC 2.2 x10E3/uL (3.4-10.8)
== END ==
LOC: M PLAIMG 13:37
PROVIDERS: ATTEND Internal Medicine Infectious Disease
DX: B20 Human immunodeficiency virus [HIV] disease (principal); E11.40 Type 2 diabetes mellitus with diabetic neuropathy, unspecified; E78.00 Pure hypercholesterolemia, unspecified; R56.9 Unspecified convulsions; E03.9 Hypothyroidism, unspecified; S22.32XA Fracture of one rib, left side, initial encounter for closed fracture; X58.XXXA Exposure to other specified factors, initial encounter; Y92.9 Unspecified place or not applicable; Y93.9 Activity, unspecified; Y99.9 Unspecified external cause status
CPT/HCPCS: 36415; 71101; 80053; 80061; 80180; 83036; 84439; 84443; 86360; 87536; G0463

== ENCOUNTER → 2021-05-20 | Outpatient (CLI) | payer MEDICARE, MEDICAID ==
[2021-05-20 21:42] LABS: ALBUMIN 2.9 GM/DL (3.2-5.2); ALT/SGPT 13 U/L (12-78); BILIRUBIN,TOTAL 0.2 MG/DL (0.2-1.0); BLOOD UREA NITROGEN 29 MG/DL (7-18); CALCIUM LEVEL 9.3 MG/DL (8.8-10.2); CARBON DIOXIDE LEVEL 30 MEQ/L (21-32); CHLORIDE LEVEL 106 MEQ/L (98-107); CHOLESTEROL LEVEL 242 MG/DL (<200); CHOLESTEROL RISK RATIO 4.245 (<5); CREATININE FOR GFR 1.46 MG/DL (0.55-1.30); FREE T4 0.86 NG/DL (0.76-1.46); GLOMERULAR FILTRATION RATE 38.8 (>45); GLUCOSE, FASTING 90 MG/DL (70-100); HDL CHOLESTEROL 57 MG/DL (>40); LDL CHOLESTEROL 148 MG/DL (<100); NON-HDL-C 185 MG/DL; POTASSIUM SERUM 3.6 MEQ/L (3.5-5.1); SODIUM LEVEL 141 MEQ/L (136-145); TOTAL PROTEIN 7.1 GM/DL (6.4-8.2); TRIGLYCERIDES LEVEL 186 MG/DL (<150)
[2021-05-21 15:05] LABS: IRON (FE) 51 UG/DL (50-170); PERCENT SATURATION 22.2 % (13.2-45.0); TOTAL IRON BINDING CAPACITY 230 UG/DL (250-450)
[2021-05-21 15:16] LABS: FOLATE > 24.0 NG/ML; VITAMIN B12 LEVEL 703 PG/ML
[2021-05-24 13:12] LABS: % CD8 Pos Lymph 65.3 % (12.0-35.5); %CD4 Pos Lymphs 10.2 % (30.8-58.5); ABS Eosinophils 0.3 x10E3/uL (0.0-0.4); ABS Lymphs 1.3 x10E3/uL (0.7-3.1); ABS Monocytes 0.4 x10E3/uL (0.1-0.9); ABS Neutophils 2.6 x10E3/uL (1.4-7.0); Abs CD4 Helper 133 /uL (359-1519); Abs CD8 Suppres 849 /uL (109-897); CD4/CD8 Ratio 0.16 (0.92-3.72); Eosinophils 6 % (Not Estab.); HCT 36.7 % (34.0-46.6); HIV-1 RNA PCR QUANT 2 LC550285 190 copies/mL (.); HIV-1 RNA PCR QUANT 3 LC550285 2.279 (.); Immature Grans 0 % (Not Estab.); LEVETIRACETAM (KEPPRA) 44.7 ug/mL (10.0-40.0); Lymphocytes 28 % (Not Estab.); MCHC 32.7 g/dL (31.5-35.7); MCV 101 fL (79-97); Monocytes 10 % (Not Estab.); Neutrophils 56 % (Not Estab.); Platelets 223 x10E3/uL (150-450); RBC 3.64 x10E6/uL (3.77-5.28); RDW 12.8 % (11.7-15.4); WBC 4.6 x10E3/uL (3.4-10.8)
== END ==
LOC: M PLALAB 13:53
PROVIDERS: ATTEND Internal Medicine Infectious Disease
DX: E11.40 Type 2 diabetes mellitus with diabetic neuropathy, unspecified (principal); B20 Human immunodeficiency virus [HIV] disease; E03.9 Hypothyroidism, unspecified; E78.00 Pure hypercholesterolemia, unspecified; R56.9 Unspecified convulsions
CPT/HCPCS: 36415; 80053; 80061; 80180; 82607; 82746; 83036; 83550; 84439; 84443; 86360; 87536; 90682; G0008; G0463

== ENCOUNTER → 2021-07-17 | Day surgery (SDC) | payer MEDICARE, MEDICAID ==
[~2021-07-17] VITALS: Ht 162.6 cm; Wt 80.3 kg
[~2021-07-17] MED LIST changes: +BASA100I SC; +BREO1INH INH; +BUPIVACAINE HCL 0.25% 30ML VIAL As Ordered ONE; +CIPROFLOXACIN 400 MG in IV 1 EA IV ONE; +CYCL10TA20 PO; +D31000TA2 PO; +JANU100T PO; +KEPP10002 PO; +LIDOCAINE 1% MDV 20ML VIAL SQ PRN; +LIDOCAINE 1% SDV 30ML VIAL As Ordered ONE; +LR 1,000 ML IV ONE; +POTA595T16 PO; +VENTAER INH
[2021-07-17 11:47] VITALS: BP 132/60
== END | disposition home or self-care (01) ==
LOC: M SDC 11:08
PROVIDERS: ATTEND Urology
DX: R33.9 Retention of urine, unspecified (principal); Z53.09 Procedure and treatment not carried out because of other contraindication

== ENCOUNTER → 2021-07-26 | Outpatient (REF) | payer MEDICARE, MEDICAID ==
[~2021-07-26] MED LIST changes: -BUPIVACAINE HCL 0.25% 30ML VIAL As Ordered ONE; -CIPROFLOXACIN 400 MG in IV 1 EA IV ONE; -D31000TA2 PO; -LIDOCAINE 1% MDV 20ML VIAL SQ PRN; -LIDOCAINE 1% SDV 30ML VIAL As Ordered ONE; -LR 1,000 ML IV ONE; +PERC5TAB12 PO; +VITA100093 PO
[2021-07-26 17:53] LABS: APPEARANCE, URINE MANUAL CLOUDY (CLEAR); BILIRUBIN, URINE MANUAL NEGATIVE (NEGATIVE); BLOOD URINE MANUAL POSITIVE (NEGATIVE); COLOR, URINE MANUAL YELLOW (YELLOW); GLUCOSE, URINE (UA) MANUAL TRACE(50 MG/DL) mg/dL (NEGATIVE); KETONE, URINE MANUAL NEGATIVE (NEGATIVE); LEUKOCYTE ESTERASE, URINE MAN POSITIVE (NEGATIVE); NITRITE, URINE MANUAL NEGATIVE (NEGATIVE); PROTEIN, URINE MANUAL 3+ mg/dL (NEGATIVE); SPECIFIC GRAVITY,URINE MANUAL 1.025 (1.002-1.035); UROBILINOGEN, URINE MANUAL NORMAL (NORMAL)
[2021-07-26 17:54] LABS: AMORPHOUS SEDIMENT, URINE MOD AMOUNT (NEGATIVE); BACTERIA, URINE NONE SEEN
[2021-07-26 17:55] LABS: CALCIUM OXALATE CRYSTALS,URINE SMALL AMOUNT /hpf; SQUAMOUS EPITHELIAL CELL URINE SMALL AMOUNT /hpf (SMALL AMT)
== END ==
LOC: M SMT 16:38
PROVIDERS: ATTEND Nurse Practitioner Women's Health
DX: Z01.818 Encounter for other preprocedural examination (principal); R33.9 Retention of urine, unspecified

== ENCOUNTER 2021-08-07 07:37 | Day surgery (SDC) | payer MEDICARE, MEDICAID ==
[~2021-08-07] VITALS: Ht 162.6 cm; Wt 67.2 kg
[~2021-08-07 07:37] MED LIST changes: +LIDOCAINE 1% MDV 20ML VIAL SQ PRN; +LIDOCAINE 2% 100MG/5ML SDV (FOR ANES.) As Ordered ONE; +LR 1,000 ML IV ONE; +MIDAZOLAM INJ 2MG/2ML VIAL (J2250 PER 1MG) As Ordered ONE; +ONDANSETRON 4MG/2ML VIAL As Ordered ONE; -PERC5TAB12 PO; +dexameTHASONE 4 MG/ML 1ML VIAL (J1100 PER 1MG) As Ordered ONE; +fentaNYL 100 MCG/2 ML INJECTION As Ordered ONE; +propofoL 200 MG/20 ML VIAL As Ordered ONE
[2021-08-07] MEDS ORDERED: GENTAMICIN 80 MG in IV 1 EA IV ONE (11:00)
[2021-08-07] MEDS ORDERED: VANCOMYCIN HCL 1,000 MG, VIAL MATE ADAPTER 1 EACH in NS 250 ML IV ONE (11:00)
[2021-08-07] MEDS ORDERED: BUPIVACAINE HCL 0.25% 30ML VIAL As Ordered ONE (11:58)
[2021-08-07] MEDS ORDERED: LIDOCAINE 1% SDV 30ML VIAL As Ordered ONE (11:58)
[2021-08-07] MEDS ORDERED: MIDAZOLAM INJ 2MG/2ML VIAL (J2250 PER 1MG) As Ordered ONE (11:59)
[2021-08-07] MEDS ORDERED: ePHEDrine SULFATE 25 MG/5 ML(5MG/ML) SYRINGE As Ordered ONE (12:36)
[2021-08-07] MEDS ORDERED: fentaNYL 100 MCG/2 ML INJECTION As Ordered ONE (13:27)
[2021-08-07] MEDS ORDERED: PERC5TAB12 PO (14:56)
[2021-08-07] MEDS ORDERED: fentaNYL 100 MCG/2 ML INJECTION IV PRN (15:15)
[2021-08-07] MEDS ORDERED: LR 1,000 ML IV SCH (15:15)
[2021-08-07] MEDS ORDERED: ONDANSETRON 4MG/2ML VIAL IV PRN (15:15)
[2021-08-07] MEDS: PERCOCET 5MG/325MG TAB PO PRN ×2 (15:31→16:03)
[2021-08-07 16:15] VITALS: BP 141/80
== END 2021-08-07 19:05 | disposition home or self-care (01) ==
LOC: M SDC 07:37
PROVIDERS: ATTEND Urology
DX: R33.9 Retention of urine, unspecified (principal); E78.5 Hyperlipidemia, unspecified; E11.9 Type 2 diabetes mellitus without complications; B20 Human immunodeficiency virus [HIV] disease; J45.909 Unspecified asthma, uncomplicated; G40.909 Epilepsy, unspecified, not intractable, without status epilepticus; G47.33 Obstructive sleep apnea (adult) (pediatric); Z79.899 Other long term (current) drug therapy; Z92.21 Personal history of antineoplastic chemotherapy; Z92.3 Personal history of irradiation; Z86.73 Personal history of transient ischemic attack (TIA), and cerebral infarction without residual deficits; Z88.8 Allergy status to other drugs, medicaments and biological substances; Z91.040 Latex allergy status; Z79.51 Long term (current) use of inhaled steroids
CPT/HCPCS: 51040; J1100; J1580; J2250; J2405; J3010; J3370

== ENCOUNTER → 2021-08-19 | Outpatient (CLI) | payer MEDICARE, MEDICAID ==
[~2021-08-19] MED LIST changes: -LIDOCAINE 1% MDV 20ML VIAL SQ PRN; -LIDOCAINE 2% 100MG/5ML SDV (FOR ANES.) As Ordered ONE; -LR 1,000 ML IV ONE; -MIDAZOLAM INJ 2MG/2ML VIAL (J2250 PER 1MG) As Ordered ONE; -ONDANSETRON 4MG/2ML VIAL As Ordered ONE; +PERC5TAB12 PO; -dexameTHASONE 4 MG/ML 1ML VIAL (J1100 PER 1MG) As Ordered ONE; -fentaNYL 100 MCG/2 ML INJECTION As Ordered ONE; -propofoL 200 MG/20 ML VIAL As Ordered ONE
[2021-08-19 14:08] LABS: ALBUMIN 3.1 GM/DL (3.2-5.2); BILIRUBIN,TOTAL 0.2 MG/DL (0.2-1.0); CALCIUM LEVEL 9.3 MG/DL (8.8-10.2); CREATININE FOR GFR 1.84 MG/DL (0.55-1.30); GLOMERULAR FILTRATION RATE 29.7 (>45); POTASSIUM SERUM 4.2 MEQ/L (3.5-5.1); TOTAL PROTEIN 7.1 GM/DL (6.4-8.2)
[2021-08-20 16:09] LABS: % CD8 Pos Lymph 51.2 % (12.0-35.5); %CD4 Pos Lymphs 10.8 % (30.8-58.5); ABS Eosinophils 0.2 x10E3/uL (0.0-0.4); ABS Monocytes 0.8 x10E3/uL (0.1-0.9); ABS Neutophils 4.4 x10E3/uL (1.4-7.0); Abs CD4 Helper 108 /uL (359-1519); Abs CD8 Suppres 512 /uL (109-897); CD4/CD8 Ratio 0.21 (0.92-3.72); Eosinophils 3 % (Not Estab.); HCT 32.6 % (34.0-46.6); HGB 10.9 g/dL (11.1-15.9); HIV-1 RNA PCR QUANT 2 LC550285 450 copies/mL (.); HIV-1 RNA PCR QUANT 3 LC550285 2.653 (.); Imm ABS Grans 0.1 x10E3/uL (0.0-0.1); Immature Grans 2 % (Not Estab.); Lymphocytes 15 % (Not Estab.); MCH 32.8 pg (26.6-33.0); MCHC 33.4 g/dL (31.5-35.7); MCV 98 fL (79-97); Monocytes 12 % (Not Estab.); Neutrophils 67 % (Not Estab.); Platelets 286 x10E3/uL (150-450); RBC 3.32 x10E6/uL (3.77-5.28); RDW 12.9 % (11.7-15.4); WBC 6.5 x10E3/uL (3.4-10.8)
== END ==
LOC: M PLALAB 11:39
PROVIDERS: ATTEND Internal Medicine Infectious Disease
DX: B20 Human immunodeficiency virus [HIV] disease (principal)

== ENCOUNTER → 2021-10-31 | Outpatient (CLI) | payer MEDICARE, MEDICAID ==
[~2021-10-31] MED LIST changes: +ALBU2.5V10 INH; -ALBU83IN INH
[2021-11-05 09:11] LABS: % CD8 Pos Lymph 53.8 % (12.0-35.5); %CD4 Pos Lymphs 14.1 % (30.8-58.5); ABS Eosinophils 0.3 x10E3/uL (0.0-0.4); ABS Lymphs 0.8 x10E3/uL (0.7-3.1); ABS Monocytes 0.6 x10E3/uL (0.1-0.9); Abs CD4 Helper 113 /uL (359-1519); Abs CD8 Suppres 430 /uL (109-897); CD4/CD8 Ratio 0.26 (0.92-3.72); Eosinophils 6 % (Not Estab.); HCT 37.5 % (34.0-46.6); HGB 12.2 g/dL (11.1-15.9); HIV-1 RNA PCR QUANT 2 LC550285 60 copies/mL (.); HIV-1 RNA PCR QUANT 3 LC550285 1.778 (.); Imm ABS Grans 0.1 x10E3/uL (0.0-0.1); Immature Grans 1 % (Not Estab.); Lymphocytes 17 % (Not Estab.); MCH 32.4 pg (26.6-33.0); MCHC 32.5 g/dL (31.5-35.7); MCV 100 fL (79-97); Monocytes 13 % (Not Estab.); Neutrophils 62 % (Not Estab.); Platelets 269 x10E3/uL (150-450); RBC 3.76 x10E6/uL (3.77-5.28); RDW 13.6 % (11.7-15.4); WBC 4.7 x10E3/uL (3.4-10.8)
== END ==
LOC: M PLALAB 12:31
PROVIDERS: ATTEND Internal Medicine Infectious Disease
DX: B20 Human immunodeficiency virus [HIV] disease (principal)

== ENCOUNTER → 2022-02-24 | Outpatient (REF) | payer MEDICARE, MEDICAID, OTHER | LOC: M SFHCPLAZ 16:45 | PROVIDERS: ATTEND Internal Medicine Infectious Disease | DX: R19.7 Diarrhea, unspecified (principal) ==

== ENCOUNTER → 2022-08-25 | Outpatient (CLI) | payer OTHER, MEDICAID ==
[~2022-08-25] MED LIST changes: +INSU100I6 SC; -LEVE1INJ5 SC
[2022-08-25 15:23] LABS: ALBUMIN 3.5 G/DL (3.2-5.2); BILIRUBIN,TOTAL 0.4 MG/DL (0.3-1.2); CALCIUM LEVEL 8.9 MG/DL (8.3-10.6); CREATININE FOR GFR 1.24 MG/DL (0.55-1.30); GLOMERULAR FILTRATION RATE 46.7 (>45); POTASSIUM SERUM 5.4 MMOL/L (3.5-5.1); TOTAL PROTEIN 7.3 G/DL (5.7-8.2)
[2022-08-28 11:09] LABS: % CD8 Pos Lymph 53.6 % (12.0-35.5); %CD4 Pos Lymphs 12.5 % (30.8-58.5); ABS Eosinophils 0.3 x10E3/uL (0.0-0.4); ABS Lymphs 0.7 x10E3/uL (0.7-3.1); ABS Monocytes 0.4 x10E3/uL (0.1-0.9); ABS Neutophils 4.4 x10E3/uL (1.4-7.0); Abs CD4 Helper 88 /uL (359-1519); Abs CD8 Suppres 375 /uL (109-897); CD4/CD8 Ratio 0.23 (0.92-3.72); Eosinophils 5 % (Not Estab.); HGB 13.3 g/dL (11.1-15.9); HIV-1 RNA PCR QUANT 2 LC550285 30 copies/mL (.); HIV-1 RNA PCR QUANT 3 LC550285 1.477 (.); Immature Grans 1 % (Not Estab.); Lymphocytes 12 % (Not Estab.); MCH 32.7 pg (26.6-33.0); MCHC 33.3 g/dL (31.5-35.7); MCV 98 fL (79-97); Monocytes 7 % (Not Estab.); Neutrophils 75 % (Not Estab.); Platelets 227 x10E3/uL (150-450); RBC 4.07 x10E6/uL (3.77-5.28); WBC 5.8 x10E3/uL (3.4-10.8)
== END ==
LOC: M PLALAB 11:24
PROVIDERS: ATTEND Internal Medicine Infectious Disease
DX: B20 Human immunodeficiency virus [HIV] disease (principal)

== ENCOUNTER → 2023-02-16 | Outpatient (CLI) | payer MEDICARE, MEDICAID ==
[2023-02-16 14:13] LABS: BASO % 0.6 % (0.0-1.0); EOS # 0.3 10^3/uL (0.0-0.5); EOS % 6.8 % (0.0-3.0); HEMATOCRIT 39.8 % (36.0-47.0); HEMOGLOBIN 12.7 g/dl (12.0-15.5); MEAN CORPUSCULAR HEMOGLOBIN 33.3 pg (27.0-33.0); MEAN CORPUSCULAR HGB CONC 31.9 g/dl (32.0-36.5); MEAN CORPUSCULAR VOLUME 104.5 fl (80.0-96.0); MONO # 0.6 10^3/uL (0.0-0.8); MONO % 12.6 % (2.0-8.0); NEUTROPHILS % 59.4 % (36.0-66.0); PLATELET COUNT, AUTOMATED 225 10^3/uL (150-450); RED BLOOD COUNT 3.81 10^6/uL (4.00-5.40)
[2023-02-16 14:21] LABS: HEMOGLOBIN A1c 7.6 % (4.0-6.0)
[2023-02-16 14:39] LABS: CREATININE, URINE 122.4 MG/DL
[2023-02-16 14:40] LABS: MAU/CREAT RATIO 193.6 MCG/MG (0.0-30.0)
[2023-02-16 14:42] LABS: ALBUMIN 3.4 G/DL (3.2-5.2); BILIRUBIN,TOTAL 0.3 MG/DL (0.3-1.2); CHOLESTEROL RISK RATIO 3.5 (<5); GLOMERULAR FILTRATION RATE 59.8 (>45); HDL CHOLESTEROL 59.9 MG/DL (>40); LDL CHOLESTEROL 114.3 MG/DL (<100); NON-HDL-C 150.1 MG/DL; POTASSIUM SERUM 5.4 MMOL/L (3.5-5.1); TOTAL PROTEIN 6.8 G/DL (5.7-8.2)
[2023-02-16 14:44] LABS: TOTAL 25(OH) VITAMIN D 31.6 NG/ML (20.0-100.0)
[2023-02-16 14:45] LABS: THYROID STIMULATING HORMONE 4.469 uIU/ML (0.55-4.78)
[2023-02-16 14:46] LABS: FREE T4 0.73 NG/DL (0.89-1.76)
[2023-02-17 17:08] LABS: % CD8 Pos Lymph 50.7 % (12.0-35.5); %CD4 Pos Lymphs 13.1 % (30.8-58.5); CD4/CD8 Ratio 0.26 (0.92-3.72); HIV-1 RNA PCR QUANT 2 LC550285 <20 copies/mL (.)
== END ==
LOC: M PLALAB 10:56
PROVIDERS: ATTEND Internal Medicine Infectious Disease
DX: B20 Human immunodeficiency virus [HIV] disease (principal); E11.40 Type 2 diabetes mellitus with diabetic neuropathy, unspecified; E55.9 Vitamin D deficiency, unspecified; E78.00 Pure hypercholesterolemia, unspecified; R56.9 Unspecified convulsions

== ENCOUNTER → 2023-05-26 | Outpatient (CLI) | payer MEDICARE, MEDICAID ==
[2023-05-26 18:32] LABS: HEMOGLOBIN A1c 7.6 % (4.0-6.0)
== END ==
LOC: M PLALAB 16:21
PROVIDERS: ATTEND Orthopaedic Surgery
DX: E11.9 Type 2 diabetes mellitus without complications (principal)

== ENCOUNTER → 2023-05-26 | Outpatient (CLI) | payer MEDICARE, MEDICAID ==
[2023-05-26 18:32] LABS: HEMOGLOBIN A1c 7.6 % (4.0-6.0)
== END ==
LOC: M PLALAB 16:15
PROVIDERS: ATTEND Nurse Practitioner Family
DX: E11.40 Type 2 diabetes mellitus with diabetic neuropathy, unspecified (principal)

== ENCOUNTER → 2023-08-13 | Outpatient (CLI) | payer MEDICAID, MEDICARE, OTHER ==
[2023-08-13 14:47] LABS: BASO % 0.4 % (0.0-1.0); EOS # 0.4 10^3/uL (0.0-0.5); EOS % 7.5 % (0.0-3.0); HEMATOCRIT 37.7 % (36.0-47.0); HEMOGLOBIN 12.2 g/dl (12.0-15.5); LYMPH # 0.9 10^3/uL (1.5-5.0); LYMPH % 17.4 % (24.0-44.0); MEAN CORPUSCULAR HEMOGLOBIN 34.8 pg (27.0-33.0); MEAN CORPUSCULAR HGB CONC 32.4 g/dl (32.0-36.5); MEAN CORPUSCULAR VOLUME 107.4 fl (80.0-96.0); MONO # 0.5 10^3/uL (0.0-0.8); MONO % 9.9 % (2.0-8.0); NEUTROPHILS # 3.4 10^3/uL (1.5-8.5); NEUTROPHILS % 64.2 % (36.0-66.0); PLATELET COUNT, AUTOMATED 200 10^3/uL (150-450); RED BLOOD COUNT 3.51 10^6/uL (4.00-5.40); WHITE BLOOD COUNT 5.2 10^3/uL (4.0-10.0)
[2023-08-13 15:14] LABS: CALCIUM LEVEL 8.5 MG/DL (8.3-10.6); CREATININE FOR GFR 1.11 MG/DL (0.55-1.30); GLOMERULAR FILTRATION RATE 52.8 (>45); POTASSIUM SERUM 4.6 MMOL/L (3.5-5.1)
[2023-08-13 15:23] LABS: HEMOGLOBIN A1c 6.6 % (4.0-6.0)
== END ==
LOC: M PLALAB 09:41
PROVIDERS: ATTEND Family Medicine
DX: Z01.810 Encounter for preprocedural cardiovascular examination (principal); E11.40 Type 2 diabetes mellitus with diabetic neuropathy, unspecified; B20 Human immunodeficiency virus [HIV] disease

== ENCOUNTER → 2023-10-29 | Outpatient (REF) | payer MEDICARE ==
[~2023-10-29] MED LIST changes: +DAPS100T22 PO; -DAPS10TA PO
[2023-10-29 17:29] LABS: APPEARANCE, URINE MANUAL CLOUDY (CLEAR); COLOR, URINE MANUAL AMBER (YELLOW)
[2023-10-29 17:30] LABS: BILIRUBIN, URINE MANUAL NEGATIVE (NEGATIVE); BLOOD URINE MANUAL POSITIVE (NEGATIVE); GLUCOSE, URINE (UA) MANUAL TRACE(50 MG/DL) mg/dL (NEGATIVE); KETONE, URINE MANUAL NEGATIVE (NEGATIVE); LEUKOCYTE ESTERASE, URINE MAN POSITIVE (NEGATIVE); NITRITE, URINE MANUAL TRACE (NEGATIVE); PROTEIN, URINE MANUAL 3+ mg/dL (NEGATIVE); UROBILINOGEN, URINE MANUAL NORMAL (NORMAL)
[2023-10-29 17:49] LABS: RBC, URINE TNTC /hpf (0-3); WBC, URINE TNTC /hpf (0-3)
[2023-10-29 17:50] LABS: AMORPHOUS SEDIMENT, URINE SMALL AMOUNT (NEGATIVE); BACTERIA, URINE MOD AMOUNT; MUCUS, URINE LARGE AMOUNT (NEGATIVE); SQUAMOUS EPITHELIAL CELL URINE SMALL AMOUNT /hpf (SMALL AMT)
[2023-10-29 17:51] LABS: HYALINE CAST, URINE NONE SEEN /lpf (0-1); TRANSITIONAL EPI CELLS, URINE SMALL AMOUNT /hpf
== END ==
LOC: M SMT 17:01
PROVIDERS: ATTEND Physician Assistant
DX: R30.0 Dysuria (principal)

== ENCOUNTER → 2024-02-18 | Outpatient (CLI) | payer MEDICARE ==
[~2024-02-18] MED LIST changes: +GABA-1490 PO; -GABA600T4 PO
[2024-02-18 15:30] LABS: ALBUMIN 3.4 G/DL (3.2-5.2); ALKALINE PHOSPHATASE 150 U/L (46-116); ALT/SGPT 9 U/L (7.0-40); AST/SGOT < 8 U/L (<34); BILIRUBIN,TOTAL 0.3 MG/DL (0.3-1.2); BLOOD UREA NITROGEN 35 MG/DL (9-23); CALCIUM LEVEL 9.7 MG/DL (8.3-10.6); CARBON DIOXIDE LEVEL 27 MMOL/L (20-31); CHLORIDE LEVEL 109 MMOL/L (98-107); CREATININE FOR GFR 1.14 MG/DL (0.55-1.30); GLOMERULAR FILTRATION RATE 51.2 (>45); GLUCOSE, FASTING 124 MG/DL (74-106); POTASSIUM SERUM 5.8 MMOL/L (3.5-5.1); SODIUM LEVEL 141 MMOL/L (136-145); TOTAL PROTEIN 7.5 G/DL (5.7-8.2)
[2024-02-19 14:12] LABS: % CD4+ LYMPHS 15.9 % (30.8-58.5); ABSOLUTE CD4 HELPER 175 /uL (359-1519); BASOPHILS 0 % (Not Estab.); EOSINOPHILS 7 % (Not Estab.); EOSINOPHILS ABSOLUTE 0.5 x10E3/uL (0.0-0.4); HCT 38.1 % (34.0-46.6); HGB 12.6 g/dL (11.1-15.9); LYMPHOCYTES 15 % (Not Estab.); LYMPHOCYTES ABSOLUTE 1.1 x10E3/uL (0.7-3.1); MCH 32.2 pg (26.6-33.0); MCHC 33.1 g/dL (31.5-35.7); MCV 97 fL (79-97); MONOCYTES 8 % (Not Estab.); MONOCYTES ABSOLUTE 0.6 x10E3/uL (0.1-0.9); NEUTROPHILS 69 % (Not Estab.); NEUTROPHILS ABSOLUTE 5.1 x10E3/uL (1.4-7.0); PLT 255 x10E3/uL (150-450); RBC 3.91 x10E6/uL (3.77-5.28); WBC 7.3 x10E3/uL (3.4-10.8)
== END ==
LOC: M PLALAB 11:15
PROVIDERS: ATTEND Internal Medicine Infectious Disease
DX: B20 Human immunodeficiency virus [HIV] disease (principal)

== ENCOUNTER → 2024-03-17 | Outpatient (CLI) | payer MEDICARE | LOC: M WHC 13:06 | PROVIDERS: ATTEND Internal Medicine Infectious Disease | DX: N93.9 Abnormal uterine and vaginal bleeding, unspecified (principal); Z53.9 Procedure and treatment not carried out, unspecified reason ==

== ENCOUNTER → 2024-04-22 | Outpatient (CLI) | payer MEDICARE | LOC: M RAD 11:36 | PROVIDERS: ATTEND Internal Medicine Infectious Disease | DX: N93.9 Abnormal uterine and vaginal bleeding, unspecified (principal) ==

== ENCOUNTER → 2024-08-15 | Outpatient (REF) | payer MEDICARE ==
[~2024-08-15] MED LIST changes: -ADV250INH INH; +ADVA1AER9 INH
[2024-08-15 14:10] LABS: APPEARANCE, URINE CLOUDY (CLEAR); BACTERIA, URINE AUTO 1+ (NEGATIVE); BILIRUBIN, URINE AUTO NEGATIVE (NEGATIVE); BLOOD, URINE BLOOD 3+ (NEGATIVE); COLOR, URINE YELLOW (YELLOW); GLUCOSE, URINE (UA) AUTO NEGATIVE (NEGATIVE); KETONE, URINE AUTO NEGATIVE (NEGATIVE); LEUKOCYTE ESTERASE, URINE AUTO 3+ (NEGATIVE); MUCUS, URINE SMALL (NEGATIVE); NITRITE, URINE AUTO NEGATIVE (NEGATIVE); PROTEIN, URINE AUTO 1+ mg/dL (NEGATIVE); RBC, URINE AUTO TNTC /HPF (0-3); SPECIFIC GRAVITY URINE AUTO 1.006 (1.002-1.035); SQUAMOUS EPITHELIAL CELL UR AU 0 /HPF (0-6); UROBILINOGEN, URINE AUTO 0.2 mg/dL (0.0-2.0); WBC, URINE AUTO TNTC /HPF (0-3)
== END ==
LOC: M SMT 12:45
PROVIDERS: ATTEND Physician Assistant
DX: R39.9 Unspecified symptoms and signs involving the genitourinary system (principal)

== ENCOUNTER → 2024-08-18 | Outpatient (CLI) | payer MEDICARE ==
[2024-08-18 16:22] LABS: ALBUMIN 3.3 G/DL (3.2-5.2); ALKALINE PHOSPHATASE 113 U/L (35-104); ALT/SGPT 10 U/L (7.0-40); AST/SGOT < 8 U/L (<34); BILIRUBIN,TOTAL 0.2 MG/DL (0.3-1.2); BLOOD UREA NITROGEN 28 MG/DL (9-23); CALCIUM LEVEL 9.3 MG/DL (8.3-10.6); CARBON DIOXIDE LEVEL 27 MMOL/L (20-31); CHLORIDE LEVEL 103 MMOL/L (98-107); CREATININE FOR GFR 1.31 MG/DL (0.55-1.30); GLOMERULAR FILTRATION RATE 43.5 (>45); GLUCOSE, FASTING 292 MG/DL (74-106); SODIUM LEVEL 138 MMOL/L (136-145); TOTAL PROTEIN 7.3 G/DL (5.7-8.2)
[2024-08-18 16:27] LABS: HEMOGLOBIN A1c 9.2 % (4.0-6.0)
[2024-08-21 18:03] LABS: % CD4 23 % (30-61); %CD8 47 % (12-42); ABSOLUTE CD4 CELLS 215 cells/uL (490-1740); ABSOLUTE CD8 CELLS 442 cells/uL (180-1170); ABSOLUTE LYMPHOCYTES 949 cells/uL (850-3900); CD4 CD8 RATIO 0.49 (0.86-5.00)
[2024-08-23 13:02] LABS: HIV-1 RNA PCR QUANT 2 NOT DETECTED copies/mL (NOT DETECTED); HIV-1 RNA PCR QUANT 3 NOT DETECTED (NOT DETECTED)
[2024-08-24 00:12] LABS: LEVETIRACETAM (KEPPRA) < 2.0 mcg/mL (6.0-46.0)
== END ==
LOC: M PLALAB 12:55
PROVIDERS: ATTEND Internal Medicine Infectious Disease
DX: B20 Human immunodeficiency virus [HIV] disease (principal); R56.9 Unspecified convulsions; E11.40 Type 2 diabetes mellitus with diabetic neuropathy, unspecified